=== PATIENT | female | born 1990 | race African-American/Black ===

== ENCOUNTER 2021-05-25 21:57 | Emergency (ER) | payer OTHER ==
[~2021-05-25] VITALS: Ht 175.3 cm; Wt 104.3 kg
--- NOTE | ~2021-05-25 | EMS ---
[address] [address] EMS Patient Care Report Name: CRUZITO MCDOWELL Room #: DEP FATUMA Vargas#: [id number] Admission: 05/25/21 Attend Phys: Discharge: 05/27/21 Date of : [birth year] Report #: [id number] THIS REPORT FOR: //name// Report Transmitted: 05/29/2021 08:39 EMS Care Summary [place], [place]/[facility] Incident [id number] @ 05/25/2021 21:24 Incident Location [address] [place] [address] Patient CRUZITO MCDOWELL Female, 30 Years 1990 Patient Address [address] [place] [id number] Patient History Depression,Anxiety,Post Traumatic Stress Disorder (PTSD),Multiple Sclerosis, Patient Allergies No known allergies, Patient Medications None Reported, Chief Complaint SUICIDAL IDEATIONS Disposition Transported No Lights/[place] Dispatch Reason Psychiatric Problem/Abnormal Behavior/Suicide Attempt Transported To [facility] Narrative M42 ARRIVES TO FIND 30 Y/O F PT COMPLAINING OF SUICIDAL IDEATIONS. ASSESSMENTS AND TREATMENTS NOTED. PT AMBULATORY AND WALKS TO AMBULANCE. PT SECURED TO [facility]. PT TRANSPORTED. M42 ARRIVES AT DESTINATION. PT AMBULATORY AND WALKS TO ROOM IN ED. PT CARE TRANSFERRED. M42 RETURNS TO SERVICE. [address] [address] EMS Patient Care Report Name: CRUZITO MCDOWELL Room #: DEP FATUMA Vargas#: [id number] Admission: 05/25/21 Attend Phys: Discharge: 05/27/21 Date of : [birth year] Report #: [id number] Initial Vitals @21:43P: 126,R: 18,GCS: 15,CO: 1,SpO2: 97, @21:41P: 132,R: 18,BP: 116/72,Pain: 0/10,GCS: 15,SpO2: 96,Revised Trauma: 12, Assessments @21:43MENTAL:No Abnormalities,SKIN:No Abnormalities,HEENT:Head/Face: No Abnormalities,Eyes: No Abnormalities,Neck/Airway: No Abnormalities,LUNG SOUNDS:General: No Abnormalities,Left Upper: No Abnormalities,Right Upper: No Abnormalities,Left Lower: No Abnormalities,Right Lower: No Abnormalities,ABDOMEN:General: No Abnormalities,Left Upper: No Abnormalities,Right Upper: No Abnormalities,Left Lower: No Abnormalities,Right Lower: No Abnormalities,PELVIS//GI:No Abnormalities,EXTREMITIES:Left Arm: No Abnormalities,Right Arm: No Abnormalities,Left Leg: No Abnormalities,Right Leg: No Abnormalities,PULSE:NEURO:No Abnormalities,@21:43MENTAL:No Abnormalities,SKIN:No Abnormalities,HEENT:Head/Face: No Abnormalities,Eyes: No Abnormalities,Neck/Airway: No Abnormalities,LUNG SOUNDS:General: No Abnormalities,Left Upper: No Abnormalities,Right Upper: No Abnormalities,Left Lower: No Abnormalities,Right Lower: No Abnormalities,ABDOMEN:General: No Abnormalities,Left Upper: No Abnormalities,Right Upper: No Abnormalities,Left Lower: No Abnormalities,Right Lower: No Abnormalities,PELVIS//GI:No Abnormalities,EXTREMITIES:Left Arm: No Abnormalities,Right Arm: No Abnormalities,Left Leg: No Abnormalities,Right Leg: No Abnormalities,PULSE:NEURO:No Abnormalities, Impression Suicidal Ideation Procedures @21:43ALS AssessmentResponse: UnchangedSucceeded Timeline 21:22,Call Received 21:22,Dispatch Notified 21:24,Dispatched 21:24,En Route 21:34,On Scene 21:37,At Patient 21:41,BP: 116/72 M,PULSE: 132,RR: 18 R,SPO2: 96 Ox,ETCO2: ,BG: ,PAIN: 0,GCS: 15, 21:43,Depart Scene 21:43,BP: / M,PULSE: 126,RR: 18 R,SPO2: 97 Ox,ETCO2: ,BG: ,PAIN: ,GCS: 15, 21:43,ALS Assessment,Response: UnchangedSucceeded, 21:54,At Destination 22:02,Call Closed [address] [address] EMS Patient Care Report Name: CRUZITO MCDOWELL [id number] Admission: 05/25/21 Attend Phys: Discharge: 05/27/21 Date of : 89 Report #: [id number] Disclaimer [email or web address] Copyright 2020 [employer] This EMS Care Summary contains data elements from the applicable legal record (which may be displayed differently). It is designed to provide pertinent information for the following purposes: continuity of care, clinical quality, and state data reporting. The complete legal record is available to ED staff and administrators of the receiving hospital in [facility]'s Patient Tracker. All data is provided "as is."
[2021-05-25 22:15] LABS: ABSOLUTE NEUTROPHILS 8.1 thou/uL (1.4-8.2); BASOPHILS 0.7 % (0.0-2.0); EOSINOPHILS 0.2 % (0.0-3.0); HEMATOCRIT 31.1 % (37.0-47.0); HEMOGLOBIN 9.9 gm/dL (12.0-15.0); LYMPHOCYTES 17.6 % (24.0-44.0); MCHC 31.6 g/dL (28.0-37.0); MCV 66.4 fL (80.0-100.0); MONOCYTES 4.2 % (1.0-8.0); PLATELET COUNT 508 thou/uL (150-400); POLYS 77.3 % (36.0-66.0); RBC 4.69 mil/uL (4.20-5.00); RDW 19.1 % (10.5-14.5); WBC 10.5 thou/uL (4.0-11.0)
[2021-05-25 22:22] LABS: ANION GAP 12 mmol/L (7-16); BUN 7 mg/dL (7-18); CHLORIDE 102 mmol/L (98-107); CO2 24 mmol/L (21-32); GLUCOSE 138 mg/dL (74-106); POTASSIUM 3.6 mmol/L (3.5-5.1); SODIUM 138 mmol/L (136-145)
[2021-05-25 22:28] LABS: ALBUMIN 2.8 g/dL (3.4-5.0); SALICYLATE < 2.8 mg/dL (2.8-20.0); SGOT 20 U/L (15-37); SGPT 12 U/L (14-59); TOTAL BILIRUBIN 0.2 mg/dL (0.2-1.0)
[2021-05-25 23:21] LABS: AMP/METHAMP Negative (Negative); BARBITURATES Negative (Negative); BENZODIAZEPINES Negative (Negative); COCAINE Negative (Negative); METHADONE Negative (Negative); OPIATES POSITIVE (Negative); PCP Negative (Negative)
[2021-05-26 00:33] LABS: ANISOCYTOSIS 2+; HYPOCHROMASIA 2+; MICROCYTES 3+
[2021-05-26 00:34] LABS: POLYCHROMASIA 1+
[2021-05-27 03:54] VITALS: BP 116/76
== END 2021-05-27 04:08 | disposition home or self-care (01) ==
LOC: ER 21:57
PROVIDERS: Emergency Medicine
DX: R45.851 Suicidal ideations (principal); Z20.822 Contact with and (suspected) exposure to COVID-19